=== PATIENT | male | born 1955 | race Caucasian/White ===

== ENCOUNTER → 2018-07-05 | Outpatient (REF) ==
--- NOTE | 2018-07-05 13:59 | RADIOLOGY IMAGING REPORT ---
FACILITY: [facility] [place] PATIENT NAME: Jann Rhoades : 1955 MR: [id number] V: [id number] EXAM DATE: ORDERING PHYSICIAN: GINA MURRIETA TECHNOLOGIST: Location: [facility] Patient: Jann Rhoades : 1955 Visit/Account:[id number] Date of Sevice: 07/05/2018 Study: MRI brain without the use of intravenous contrast Indication: Bilateral hand tremor, foot weakness Comparison study: None Technique: Multiplanar MRI sequences were obtained through the brain without the use of intravenous g adolinium contrast. The examination demonstrates no evidence of acute intracranial hemorrhage. There is no evidence of ex tra-axial collection or hydrocephalus. A diffusion-weighted sequence was performed and demonstrates no evidence of active ischemia. There is no evidence of active infarction. There are a few widely scattered areas of high T2-weighted signal present within the supratentorial w jewell matter. These areas are nonspecific in appearance and likely of no clinical significance. There is no contrast enhancement or mass effect associated with these areas. There is no evidence of abnormal signal within the brainstem. There is mild atrophy present. The orbits are grossly unremarkable. There is no significant abnormality of the paranasal sinuses present. IMPRESSION: No significant abnormality identified. There are a few widely scattered areas of high T2- weighted signal present within the supratentorial white matter. These areas are nonspecific in appear ance and likely of no clinical significance. Report Dictated By: Iker Webster at 07/05/2018 1:51 PM Report E-Signed By: Iker Webster at 07/05/2018 1:55 PM WSN:[id number]
== END ==
LOC: MRI 12:21
PROVIDERS: ATTEND Nurse Practitioner
DX: R25.1 Tremor, unspecified (principal); R29.898 Other symptoms and signs involving the musculoskeletal system
CPT/HCPCS: 70551